=== PATIENT | male | born 1955 | race Caucasian/White ===

== ENCOUNTER 2022-10-17 20:06 | Observation (INO) ==
[2022-10-17] MEDS ORDERED: KETOROLAC TROMETHAMINE 15 MG/ML VIAL IV STA (20:23)
[2022-10-17] MEDS ORDERED: SODIUM CHLORIDE 0.9% 1000ML 1,000 ML IV ONE (20:23)
[2022-10-17] MEDS ORDERED: ONDANSETRON INJ 2 MG/ML 2 ML VIAL IV STA (20:23)
[2022-10-17 20:45] LABS: Hemoglobin 15.1 g/dl (14.0-18.0); Mean Corpuscular Hemoglobin 31.9 pg (25.0-34.0); Mean Corpuscular Volume 88.8 fL (80.0-100.0); Mean Platelet Volume 9.5 fL (9.4-12.4); Platelet Count 257 K/uL (130-400); RDW Coefficient of Variation 11.9 % (11.5-14.5); RDW Standard Deviation 38.9 fL (36.4-46.3); Red Blood Count 4.73 M/uL (4.70-6.10); White Blood Count 12.95 K/ul (4.8-10.8)
[2022-10-17 21:04] LABS: Albumin Level 4.1 gm/dl (3.4-5.0); BUN Creatinine Ratio 18.2 (10-20); Bilirubin Direct 0.1 mg/dl (0-0.2); Bilirubin,Total 1.4 mg/dl (0.2-1.0); Calcium 9.7 mg/dl (8.5-10.1); Creatinine Clr Calc Pharmacy 66.3 ml/min; Est GFR (African American) 81.8 ml/min; Est GFR (Non-African American) 70.6 ml/min; Potassium 3.6 mmol/L (3.5-5.1); Total Protein 7.1 gm/dl (6.0-8.3)
[2022-10-17 21:08] LABS: Troponin I High Sensitivity 13.4 pg/ml (0-20)
[2022-10-17 21:10] LABS: Basophils # (auto) 0.03 K/uL (0-0.2); Basophils % (auto) 0.2 %; Eosinophils # (auto) 0.01 K/uL (0-0.50); Eosinophils % (auto) 0.1 %; Immature Granulocytes # (auto) 0.08 K/uL (0.01-0.20); Immature Granulocytes % (auto) 0.6 %; Lymphocytes # (auto) 0.47 K/uL (1.2-3.4); Lymphocytes % (auto) 3.6 %; Monocytes # (auto) 0.19 K/uL (0.11-0.59); Monocytes % (auto) 1.5 %; Neutrophils # (auto) 12.17 K/uL (1.40-6.50); Toxic Vacuolation 1+
--- NOTE | 2022-10-17 21:11 | Emergency Department Note ---
History of Present Illness General Chief Complaint: Dizziness Stated Complaint: DIZZINESS, DRY HEAVING, ABD DISTENSION Time Seen by Provider: 10/17/22 20:12 History of Present Illness Provider Complaint: abdominal pain Onset (ago): 1 day(s) Pain Consistency: constant Location: epigastric Radiation: none Severity: moderate Quality: + stabbing, + aching, + sharp and + dull Relieved By: + vomiting Exacerbated By: + nothing Context: no foreign travel, no possible food poisoning, no sick contacts, no recent antibiotic use, no recent surgery/procedure or no recent injury Associated Symptoms: + nausea, + vomiting and + chills; no diarrhea, no fever, no constipation, no dysuria, no hematemesis, no hematochezia, no melena, no hematuria, no headache and no back pain Home Medications Medication Instructions Recorded Confirmed Type lisinopril 10 mg tablet 10 mg PO QAM #90 tabs 08/11/22 10/17/22 Rx omeprazole 40 mg capsule,delayed 40 mg PO DAILY PRN gastric reflux 08/11/22 10/17/22 Rx release #90 caps venlafaxine 150 mg 150 mg PO QAM #90 caps 08/11/22 10/17/22 Rx capsule,extended release 24 hr (Effexor XR) Allergies Allergy/AdvReac Type Severity Reaction Status Date / Time No Known Drug Allergies Allergy Unknown Verified 10/17/22 21:34 Past Med/Surg History Medical History Depression Hypertension Hypertriglyceridemia Impaired glucose regulation Insomnia 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 Surgical History History of colonoscopy History of esophagogastroduodenoscopy (EGD) History of left shoulder replacement History of lumbar laminectomy History of repair of right rotator cuff History of tooth extraction Hx of LASIK Hx of vasectomy Status post repair of hydrocele Family History Mother Dementia Hyperlipemia Father , age 75 Cerebral artery occlusion with cerebral infarction Abdominal aortic aneurysm Peripheral vascular disease Unknown Hypertension Brother Skin cancer Uncle Colorectal cancer Grandfather Lung cancer Other No family history of adverse response to anesthesia Denies family history of Ovarian cancer Prostate cancer Myocardial infarction Breast cancer Social History Smoking Status: Unknown if ever smoked Second Hand Exposure: No; Hx Alcohol Use: Yes Alcohol type: beer Alcohol Intake Frequency: Monthly or Less Hx Substance Use: No Preferred Language: Icelandic Communication Ability: Effective Visual Impairment: Limited Hearing Ability: Hard of Hearing Assistant [employer] Required: No Beliefs That Will Affect Care: None marital status: Current Living Situation: Spouse current occupational status: retired How many Children do You have: 0 Feels Safe at Home: Yes Childhood Exposure to Second-Hand Smoke: Yes caffeine: Yes Dental Care, Regularly: Yes Physical Activity Frequency: Does not Exercise Seatbelt Use: always Sunscreen Use: Yes Assistive Devices: None Physical Exam Vital Signs: Vital Signs - 24 hr 10/17/22 20:11 10/17/22 20:34 10/17/22 22:02 Temperature 37.3 C Temperature Source Oral Pulse Rate 85 80 Pulse Rate [Right Radial] 75 Pulse Rhythm Regular Pulse Rhythm [Righ t Radial] Regular Pulse Strength Normal Pulse Strength [Ri ght Radial] Normal Respiratory Rate 14 13 Respiratory Effort / Characteristics Non-Labored Sponta neous Non-Labored Sponta neous Respiratory Depth Normal Normal Respiratory Patter n Regular Regular Blood Pressure 132/69 Blood Pressure [Ri ght Arm] 106/68 Blood Pressure Devorah n 90 Blood Pressure Devorah n [Right Arm] 80 Pulse Oximetry 93 98 Oxygen Delivery Me thod Room Air Room Air Sepsis Recent Feve r Within 48 Hours No Sepsis New/Unexpla ined Change in Men jaclyn Status No Sepsis Action Take n by Nursing No Action Required Physical Exam: Physical Exam HENT: Exam performed. - Head: Normocephalic and atraumatic. - Mouth/Throat: The oropharynx is clear and moist. No trismus in the jaw. No dental abscesses or uvula swelling. No oropharyngeal exudate or tonsillar abscesses. EYES: Conjunctivae and EOM are normal. Pupils are equal, round, and reactive to light. Right eye exhibits no discharge. Left eye exhibits no discharge. No scleral icterus. NECK: Normal range of motion. Neck supple. No JVD present. CV: Normal rate, regular rhythm, normal heart sounds and intact distal pulses. There is no peripheral edema. Palpable radial pulses bue. PULM/CHEST: Effort normal and breath sounds normal. No respiratory distress. No stridor. He has no wheezes. He has no rales. ABD: The abdomen is soft. Bowel sounds are normal. He has no distension. No mass is present. There is no tenderness. There is no rebound, no guarding, no Holman's sign and no tenderness at McBurney's point. Rovsig negative. MUSC/SKEL: Normal range of motion. There is no peripheral edema, tenderness or deformity. NEURO: He is alert and oriented to person, place, and time. He has normal strength. No cranial nerve deficit or sensory deficit. Coordination and gait normal. GCS eye subscore is 4. GCS verbal subscore is 5. GCS motor subscore is 6. Cerebellar tests wnl. SKIN: Skin is warm and dry. He is not diaphoretic. PSYCH: He has a normal mood and affect. Behavior is normal. Judgment and thought content normal. Course Course 2012: The patient was evaluated in room B12. A complete history and physical exam was performed Administered Medications Discontinued Medications Sodium Chloride (Nss 1000ml) 1,000 mls @ 999 mls/hr IV .Q1H1M ONE Stop: 10/17/22 21:23 Last Infusion: 10/17/22 21:38 Dose: 0 mls/hr Documented By: Admin: 10/17/22 20:35 Dose: 999 mls/hr Documented By: SULEIMAN Cefoxitin Sodium (Mefoxin) 2,000 mg in 60 mls @ 100 mls/hr IV NOW STA Stop: 10/17/22 22:53 Last Admin: 10/17/22 22:34 Dose: 100 mls/hr Documented By: SULEIMAN Ketorolac Tromethamine (Ketorolac Tromethamine 15 Mg/Ml Vial) 15 mg IV NOW STA Stop: 10/17/22 20:24 Last Admin: 10/17/22 20:36 Dose: 15 mg Documented By: SULEIMAN Ondansetron HCl (Ondansetron Inj 2 Mg/Ml 2 Ml Vial) 4 mg IV NOW STA Stop: 10/17/22 20:24 Last Admin: 10/17/22 20:35 Dose: 4 mg Documented By: SULEIMAN Medical Decision Making Laboratory Data Attestation: I reviewed the patient's lab results. 10/17/22 20:15 10/17/22 20:15 Lab Results 10/17/22 10/17/22 10/17/22 Range/Units 20:15 20:15 20:15 WBC 12.95 H (4.8-10.8) K/ul RBC 4.73 (4.70-6.10) M/uL Hgb 15.1 (14.0-18.0) g/dl Hct 42.0 (42.0-52.0) % MCV 88.8 (80.0-100.0) fL MCH 31.9 (25.0-34.0) pg MCHC 36.0 (32.0-36.0) g/dL RDW Std Deviation 38.9 (36.4-46.3) fL RDW Coeff of Vivian 11.9 (11.5-14.5) % Plt Count 257 (130-400) K/uL MPV 9.5 (9.4-12.4) fL Immature Gran % (Auto) 0.6 % Neut % (Auto) 94.0 % Lymph % (Auto) 3.6 % [place] % (Auto) 1.5 % Eos % (Auto) 0.1 % Baso % (Auto) 0.2 % Neut # (Auto) 12.17 H (1.40-6.50) K/uL Lymph # (Auto) 0.47 L (1.2-3.4) K/uL [place] # (Auto) 0.19 (0.11-0.59) K/uL Eos # (Auto) 0.01 (0-0.50) K/uL Baso # (Auto) 0.03 (0-0.2) K/uL Immature Gran # (Auto) 0.08 (0.01-0.20) K/uL Toxic Vacuolation 1+ PT 10.9 (9.0-12.0) Seconds INR 1.0 (0.9-1.1) APTT 21.6 (21.0-31.0) Seconds PTT Ratio 0.8 Sodium 136 (136-145) mmol/L Potassium 3.6 (3.5-5.1) mmol/L Chloride 103 (98-107) mmol/L Carbon Dioxide 21 (21-32) mmol/L Anion Gap 12 H (3-11) BUN 20 (6-23) mg/dl Creatinine 1.10 (0.6-1.4) mg/dl Est Cr Clr Drug Dosing 66.3 ml/min Est GFR ( Amer) 81.8 ml/min Est GFR (Non-Af Amer) 70.6 ml/min BUN/Creatinine Ratio 18.2 (10-20) Glucose 179 H (70-99(Fasting)) mg/dl Calcium 9.7 (8.5-10.1) mg/dl Total Bilirubin 1.4 H (0.2-1.0) mg/dl Direct Bilirubin 0.1 (0-0.2) mg/dl AST 17 (13-39) U/L ALT 24 (7-52) U/L Alkaline Phosphatase 72 (34-104) U/L Troponin I High Sens 13.4 (0-20) pg/ml Total Protein 7.1 (6.0-8.3) gm/dl Albumin 4.1 (3.4-5.0) gm/dl Lipase 12 (11-82) U/L SARS-CoV-2, RNA, NAAT (NEGATIVE) 10/17/22 Range/Units 22:15 WBC (4.8-10.8) K/ul RBC (4.70-6.10) M/uL Hgb (14.0-18.0) g/dl Hct (42.0-52.0) % MCV (80.0-100.0) fL MCH (25.0-34.0) pg MCHC (32.0-36.0) g/dL RDW Std Deviation (36.4-46.3) fL RDW Coeff of Vivian (11.5-14.5) % Plt Count (130-400) K/uL MPV (9.4-12.4) fL Immature Gran % (Auto) % Neut % (Auto) % Lymph % (Auto) % [place] % (Auto) % Eos % (Auto) % Baso % (Auto) % Neut # (Auto) (1.40-6.50) K/uL Lymph # (Auto) (1.2-3.4) K/uL [place] # (Auto) (0.11-0.59) K/uL Eos # (Auto) (0-0.50) K/uL Baso # (Auto) (0-0.2) K/uL Immature Gran # (Auto) (0.01-0.20) K/uL Toxic Vacuolation PT (9.0-12.0) Seconds INR (0.9-1.1) APTT (21.0-31.0) Seconds PTT Ratio Sodium (136-145) mmol/L Potassium (3.5-5.1) mmol/L Chloride (98-107) mmol/L Carbon Dioxide (21-32) mmol/L Anion Gap (3-11) BUN (6-23) mg/dl Creatinine (0.6-1.4) mg/dl Est Cr Clr Drug Dosing ml/min Est GFR ( Amer) ml/min Est GFR (Non-Af Amer) ml/min BUN/Creatinine Ratio (10-20) Glucose (70-99(Fasting)) mg/dl Calcium (8.5-10.1) mg/dl Total Bilirubin (0.2-1.0) mg/dl Direct Bilirubin (0-0.2) mg/dl AST (13-39) U/L ALT (7-52) U/L Alkaline Phosphatase (34-104) U/L Troponin I High Sens (0-20) pg/ml Total Protein (6.0-8.3) gm/dl Albumin (3.4-5.0) gm/dl Lipase (11-82) U/L SARS-CoV-2, RNA, NAAT NEGATIVE (NEGATIVE) Imaging Data Attestation: I personally reviewed and interpreted this imaging study as follows: My Impression: Acute abdominal series: Chest x-ray negative. Airway clear. No pneumothorax. No consolidation. No cardiomegaly or cephalization.. No free air under the diaphragm. No fractures of the skeletal structures. No air-fluid levels nonspecific bowel gas pattern. Radiologist's Impression: Gallbladder Ultrasound 10/17/22 20:23 ULTRASOUND RIGHT UPPER QUADRANT ABDOMEN CLINICAL HISTORY: Right upper quadrant and epigastric abdominal pain. COMPARISON STUDY: Abdominal radiograph dated 10/17/2022 TECHNIQUE: Real-time, grayscale, and color flow sonography of the right upper quadrant of the abdomen was performed. Images are reviewed in the transverse and longitudinal planes. FINDINGS: Liver: The liver is normal in size and heterogeneous and echotexture. There is no intrahepatic biliary ductal dilatation. The main portal vein is patent. Gallbladder: A 4 mm gallbladder polyp is incidentally noted. The gallbladder is mildly distended and there are shadowing gallstones and sludge. There is no gallbladder wall thickening or pericholecystic fluid. A sonographic Holman's sign could not be assessed as the patient received analgesia. The common bile duct measures up to 0.4 cm in diameter. Pancreas: Visualized portions of the pancreatic head and body are normal in appearance. The splenic vein is patent. Right kidney: Survey images of the right kidney demonstrate normal size and e chotexture. There is no hydronephrosis. Ascites: None. IMPRESSION: 1. Gallstones and biliary sludge within a mildly distended gallbladder. There is no wall thickening or definitive sonographic evidence of acute cholecystitis. Correlate with clinical and laboratory findings. If there is strong clinical concern for acute cholecystitis a hepatobiliary scan could be considered. 2. There is no intra or extrahepatic biliary ductal dilatation. ACT 112: Negative or not required by law. Electronically signed by: Lang Bowden M.D. 10/17/2022 9:29 PM Chest/Abdomen X-ray 10/17/22 20:24 PA CHEST WITH ABDOMINAL SERIES CLINICAL HISTORY: Right upper quadrant abdominal pain. Nausea and vomiting. Diarrhea FINDINGS: A PA chest radiograph is compared to study dated 12/30/2020. The cardiomediastinal silhouette is top normal for projection. Airspace opacities are seen in the left lung base. There is mild right basilar atelectasis. No pleural effusion or pneumothorax is seen. The skeletal structures appear osteopenic. The bony thorax is grossly intact. A left shoulder arthroplasty is in place. Supine and erect abdominal radiographs are obtained. No prior studies are available for comparison at the time of dictation. There is a nonobstructed a bdominal bowel gas pattern. Moderate fecal retention is noted throughout the colon. No evidence of intraperitoneal free air is seen. There are no abnormal abdominal calcifications. The lumbosacral spine and bony pelvis appear intact. There is lumbosacral spondylosis. IMPRESSION: 1. Left basilar opacities could represent atelectasis versus a mild pneumonitis. Clinical correlation will be required and radiographic follow-up to resolution is recommended. 2. Nonobstructed abdominal bowel gas pattern noting moderate colonic fecal retention. ACT 112: Negative or not required by law. Electronically signed by: Lang Bowden M.D. 10/17/2022 9:33 PM ECG Data Attestation: I personally reviewed and interpreted this ECG as follows: Indication: abdominal pain Rate (beats per minute): 82 Rhythm: normal sinus Findings: no ST depression, no ST elevation or no prolonged QT MDM Narrative Cardiac monitoring: An order was placed for continuous cardiac monitoring. The monitor shows a rate of 70 with sinus rhythm interpreted by me Vital signs stable. Labs show mild leukocytosis of 12.95. Bilirubin is mildly elevated at 1.4. Ultrasound shows gallstones but no cholecystitis. I discussed the findings with the patient and family members at bedside and give the patient for outpatient surgical evaluation. Patient states he does not want the pain to come back and is requesting to have the gallbladder removed GABINO. General surgery was consulted and agreed to admit the patient to their service for possible cholecystectomy. Impression & Plan Biliary colic, Gallstone Discharge Plan Visit Data Chief Complaint: Dizziness Stated Complaint: DIZZINESS, DRY HEAVING, ABD DISTENSION ED Provider: Rd Emerson Discharge Problem: Biliary colic, Gallstone Patient Disposition: Being Evaluated by Surgeon Forms Stand Alone Forms: My [facility] Prescriptions Prescriptions: No Action lisinopril 10 mg tablet 10 mg PO QAM Qty: 90 3RF omeprazole 40 mg capsule,delayed release(DR/EC) 40 mg PO DAILY PRN (Reason: gastric reflux) Qty: 90 3RF venlafaxine [Effexor XR] 150 mg capsule,extended release 24hr 150 mg PO QAM Qty: 90 3RF Referrals Referrals: Christo Landrum MD [Primary Care Provider] -
[2022-10-17 21:21] LABS: Partial Thromboplastin Ratio 0.8; Partial Thromboplastin Time 21.6 Seconds (21.0-31.0); Prothrombin Time 10.9 Seconds (9.0-12.0)
--- NOTE | 2022-10-17 21:31 | Ultrasound Report ---
ULTRASOUND RIGHT UPPER QUADRANT ABDOMEN CLINICAL HISTORY: Right upper quadrant and epigastric abdominal pain. COMPARISON STUDY: Abdominal radiograph dated 10/17/2022 TECHNIQUE: Real-time, grayscale, and color flow sonography of the right upper quadrant of the abdomen was performed. Images are reviewed in the transverse and longitudinal planes. FINDINGS: Liver: The liver is normal in size and heterogeneous and echotexture. There is no intrahepatic biliar y ductal dilatation. The main portal vein is patent. Gallbladder: A 4 mm gallbladder polyp is incidentally noted. The gallbladder is mildly distended and there are shadowing gallstones and sludge. There is no gallbladder wall thickening or pericholecystic fluid. A sonographic Holman's sign could not be assessed as the patient received analgesia. The comm on bile duct measures up to 0.4 cm in diameter. Pancreas: Visualized portions of the pancreatic head and body are normal in appearance. The splenic v ein is patent. Right kidney: Survey images of the right kidney demonstrate normal size and echotexture. There is no hydronephrosis. Ascites: None. IMPRESSION: 1. Gallstones and biliary sludge within a mildly distended gallbladder. There is no wall thickening o r definitive sonographic evidence of acute cholecystitis. Correlate with clinical and laboratory find ings. If there is strong clinical concern for acute cholecystitis a hepatobiliary scan could be consi dered. 2. There is no intra or extrahepatic biliary ductal dilatation. ACT 112: Negative or not required by law. Electronically signed by: Lang Bowden M.D. 10/17/2022 9:29 PM
--- NOTE | 2022-10-17 21:35 | XRay Report ---
PA CHEST WITH ABDOMINAL SERIES CLINICAL HISTORY: Right upper quadrant abdominal pain. Nausea and vomiting. Diarrhea FINDINGS: A PA chest radiograph is compared to study dated 12/30/2020. The cardiomediastinal silhouette is top n ormal for projection. Airspace opacities are seen in the left lung base. There is mild right basilar atelectasis. No pleural effusion or pneumothorax is seen. The skeletal structures appear osteopenic. The bony thorax is grossly intact. A left shoulder arthroplasty is in place. Supine and erect abdominal radiographs are obtained. No prior studies are available for comparison at the time of dictation. There is a nonobstructed abdominal bowel gas pattern. Moderate fecal retentio n is noted throughout the colon. No evidence of intraperitoneal free air is seen. There are no abnorm al abdominal calcifications. The lumbosacral spine and bony pelvis appear intact. There is lumbosacra l spondylosis. IMPRESSION: 1. Left basilar opacities could represent atelectasis versus a mild pneumonitis. Clinical correlation will be required and radiographic follow-up to resolution is recommended. 2. Nonobstructed abdominal bowel gas pattern noting moderate colonic fecal retention. ACT 112: Negative or not required by law. Electronically signed by: Lang Bowden M.D. 10/17/2022 9:33 PM
--- NOTE | 2022-10-17 22:17 | Surgery Consultation ---
I reviewed this case with the surgical PA and reviewed his ED and admission work up including images. I agree with the plan. Date of Consultation October 17, 2022 Assessment & Plan (1) Biliary colic: I suspect the patient is suffering from biliary colic due to the stones and sludge noted in his gallbladder. The patient does not have definite evidence of acute cholecystitis and I therefore offered the patient discharge from the emergency department with close outpatient follow-up versus admission and potential cholecystectomy. Due to the severity of the pain he experienced prior to arrival to the emergency department the patient is reluctant to go home and wishes to consider having cholecystectomy this admission so we will admit him to the hospital. We will proceed as follows: Analgesia will be provided Antiemetics will be provided We will provide hydration with IV fluids We will initiate antibiotics in the form of cefoxitin I think would be reasonable to allow the patient clear liquids until midnight tonight at which time he will be made n.p.o. Serial labs will be followed A COVID test has been ordered and is pending The patient is tentatively scheduled for laparoscopic possible open cholecystectomy with Dr. Mercedes on 10/18/2022 Additional recommendations be forthcoming based on patient's serial labs, operative findings, and postoperative recovery We will use SCDs for DVT prevention, no chemical means due to planned surgery The patient be a level 1 full code History of Present Illness Reason for Consultation: Biliary colic History of Present Illness This is a 66-year-old male who presented to [facility] emergency department secondary to upper abdominal pain. Patient says he was in his usual state of health until the past 24 hours he developed some upper abdominal pain in the epigastric and to a greater extent the right upper quadrant. He does report that he would occasionally get some postprandial pain over the past several months that would be relieved with belching but his pain that caused him to present to the emergency department this evening was markedly worse and almost unbearable causing him to come seek medical attention. He did not report any palliative or provocative factors. He denies any prior abdominal surgeries. He notes that he did not take his temperature but he did get chills. In addition the patient had nausea and vomiting. Upon presentation to the emergency department he had labs and imaging which I independently reviewed. A CBC revealed white blood cell count was 12.9. Hemoglobin, hematocrit, and platelet count were within the normal range. Coagulation studies were noted to be normal. Chemistry profile showed sodium, potassium, BUN, and creatinine were within normal range. He was noted to have an elevation of his total bilirubin at 1.4 but his direct bilirubin was within the normal range. Transaminases, alkaline phosphatase, and lipase were none levated. A troponin was checked and was nonelevated. He did have an EKG that did not show evidence indicative of acute ischemia.The patient did have a chest x-ray that showed he had a left basilar opacity that was felt to represent either mild pneumonitis or atelectasis. He was noted to have a nonobstructive bowel gas pattern on an abdominal x-ray. A gallbladder ultrasound was performed that showed gallstones with biliary sludge and a mildly distended gallbladder. No gallbladder wall thickening or definite evidence of cholecystitis was noted. I did question the patient on his activities of daily living and he notes that he leads an active lifestyle he is able to negotiate steps and inclines without any chest pain or shortness of breath. Since arrival to the emergency department the patient has received Zofran, 15 mg of Toradol and 1 L of normal saline solution. His symptoms had markedly improved by the time of my arrival at the bedside. At the time of my interview the patient was resting comfortably in bed he was in no distress Allergies Allergy/AdvReac Type Severity Reaction Status Date / Time No Known Drug Allergies Allergy Unknown Verified 10/17/22 21:34 Home Medications Medication Instructions Recorded Confirmed Type lisinopril 10 mg tablet 10 mg PO QAM #90 tabs 08/11/22 10/17/22 Rx omeprazole 40 mg capsule,delayed 40 mg PO DAILY PRN gastric reflux 08/11/22 10/17/22 Rx release #90 caps venlafaxine 150 mg 150 mg PO QAM #90 caps 08/11/22 10/17/22 Rx capsule,extended release 24 hr (Effexor XR) Patient History Medical History Depression Hypertension Hypertriglyceridemia Impaired glucose regulation Insomnia 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 Surgical History History of colonoscopy History of esophagogastroduodenoscopy (EGD) History of left shoulder replacement History of lumbar laminectomy History of repair of right rotator cuff History of tooth extraction Hx of LASIK Hx of vasectomy Status post repair of hydrocele Family History Mother Dementia Hyperlipemia Father , age 75 Cerebral artery occlusion with cerebral infarction Abdominal aortic aneurysm Peripheral vascular disease Unknown Hypertension Brother Skin cancer Uncle Colorectal cancer Grandfather Lung cancer Other No family history of adverse response to anesthesia Denies family history of Ovarian cancer Prostate cancer Myocardial infarction Breast cancer Social History Smoking Status: Never smoker Second Hand Exposure: No; Hx Alcohol Use: No Hx Substance Use: No Preferred Language: Thai Communication Ability: Effective Visual Impairment: Limited Hearing Ability: Hard of Hearing Instructional Technology Specialist Required: No Beliefs That Will Affect Care: None marital status: Current Living Situation: Spouse Current Living Situation Comment: lives in 2 story home with current occupational status: retired How many Children do You have: 0 Other Information That Helps Us Care for You: No Feels Safe at Home: Yes Safety Concerns: Feels Safe At This Time Childhood Exposure to Second-Hand Smoke: Yes caffeine: Yes Dental Care, Regularly: Yes Physical Activity Frequency: Does not Exercise Seatbelt Use: always Sunscreen Use: Yes Assistive Devices: None Review of Systems Constitutional: + chills; no fever Eyes: no eye pain Ear, Nose, Mouth, Throat: no ear pain Respiratory: no cough and no dyspnea Cardiovascular: no chest pain Gastrointestinal: as per Subjective / HPI Genitourinary: no dysuria Musculoskeletal: no back pain Integumentary: no rash Neurologic: no localized weakness Physical Exam Constitutional: WD/WN, vitals as above Eyes: + anicteric sclerae; no conjunctival abnormality ENMT: Ears: no hearing impairment and no external ear abnormality Mouth: no oropharynx abnormality Neck: trachea midline Respiratory: normal respiratory effort; no respiratory distress and no labored breathing No rales, rhonchi, or wheezing. Cardiovascular: Rate/Rhythm: regular rate and regular rhythm Vessels: dorsalis pedis pulses present Gastrointestinal (Abdomen): Abdomen is rotund with mild distention. There is no rigidity. There is no rebound tenderness or guarding. At the time of my exam there is no pain with palpation. Holman sign was negative.The patient is noted to have an apparent diastases recti in his abdomen superior to the umbilicus. (Bulging is noted when the patient strains/Valsalvas.) This area is nonpainful to palpation Musculoskeletal: No calf tenderness Skin: no rashes Neurologic: Patient is able to move all 4 extremities noted focal deficits. Patient did report a pre-existing history of Collazo's palsy and he was noted to have some residual paralysis of his left facial nerve. Psychiatric: A+Ox3, euthymic affect Results & Data ([facility]) Vital Signs (Past 12 Hours) Vital Signs Temp Pulse Pulse Resp BP BP Pulse Ox 10/17/22 22:02 75 13 106/68 98 10/17/22 20:34 80 10/17/22 20:11 37.3 C 85 14 132/69 93 O2 Del Method 10/17/22 22:02 Room Air 10/17/22 20:34 10/17/22 20:11 Room Air PG Care Time/CCT Total # of Minutes Spent Total Time Spent with Patient: Total time spent is greater than 50% in coordination of care (as documented) at patient's floor/unit and/or counseling patient: Coding Level of Care Code 81989 IN/OBS CONSULT LVL 5,80M Diagnoses Biliary colic K80.50
[2022-10-17] MEDS ORDERED: ONDANSETRON INJ 2 MG/ML 2 ML VIAL IV PRN (22:18)
[2022-10-17] MEDS ORDERED: MoRPHine SULFATE 4 MG/ML 1 ML CARP\\VIAL IV PRN (22:18)
[2022-10-17] MEDS ORDERED: cefOXitin 2,000 MG/60 ML BAG IV STA (22:18)
[2022-10-17] MEDS ORDERED: PANTOprazole 40 MG TAB PO PRN (23:41)
[2022-10-17] MEDS: LACTATED RINGER'S 1,000 ML IV SCH (23:54)
[2022-10-18] MEDS: cefOXitin 2,000 MG in DEXTROSE 5% 50 ML IV SCH ×2 (05:19→12:40)
[2022-10-18] MEDS: ACETAMINOPHEN 1,000 MG/100 ML VIAL IV PRN (05:30)
[2022-10-18 05:57] LABS: Appearance Urine Clear (Clear); Bacteria Urine Automated Negative (Negative); Bilirubin Urine Negative (Negative); Blood Urine Negative (Negative); Color Urine Orange; Glucose Urine UA Negative (Negative); Ketones Urine Trace (Negative); Leukocyte Esterase Urine Negative (Negative); Nitrite Urine Negative (Negative); Protein Urine Trace (Negative); RBC Urine Automated 0-4 /hpf (0-4); Specific Gravity Urine 1.029 (1.000-1.030); Urobilinogen Urine Negative (Negative); pH Urine 5.5 (4.5-7.5)
[2022-10-18 07:51] LABS: Basophils # (auto) 0.03 K/uL (0-0.2); Basophils % (auto) 0.2 %; Eosinophils # (auto) 0.03 K/uL (0-0.50); Eosinophils % (auto) 0.2 %; Hematocrit (blood only) 37.7 % (42.0-52.0); Hemoglobin 13.2 g/dl (14.0-18.0); Immature Granulocytes # (auto) 0.05 K/uL (0.01-0.20); Immature Granulocytes % (auto) 0.4 %; Lymphocytes # (auto) 0.53 K/uL (1.2-3.4); Lymphocytes % (auto) 4.1 %; Mean Corpuscular Hemoglobin 31.9 pg (25.0-34.0); Mean Corpuscular Volume 91.1 fL (80.0-100.0); Mean Platelet Volume 9.6 fL (9.4-12.4); Monocytes % (auto) 6.9 %; Neutrophils # (auto) 11.41 K/uL (1.40-6.50); Neutrophils % (auto) 88.2 %; Platelet Count 222 K/uL (130-400); RDW Coefficient of Variation 12.3 % (11.5-14.5); RDW Standard Deviation 40.6 fL (36.4-46.3); Red Blood Count 4.14 M/uL (4.70-6.10); White Blood Count 12.95 K/ul (4.8-10.8)
[2022-10-18] MEDS: LACTATED RINGER'S 1,000 ML IV SCH ×2 (07:56→17:04)
[2022-10-18] MEDS: VENLAFAXINE HCL XR 150 MG CAPXR PO SCH (07:56)
[2022-10-18 08:15] LABS: Albumin Globulin Ratio 1.5 (0.9-2); Albumin Level 3.6 gm/dl (3.4-5.0); BUN Creatinine Ratio 21.1 (10-20); Bilirubin,Total 1.2 mg/dl (0.2-1.0); Calcium 8.6 mg/dl (8.5-10.1); Creatinine Clr Calc Pharmacy 66.2 ml/min; Est GFR (African American) 82.7 ml/min; Est GFR (Non-African American) 71.4 ml/min; Globulin 2.4 gm/dl (2.5-4.0); Potassium 4.1 mmol/L (3.5-5.1)
[2022-10-18] MEDS ORDERED: fentaNYL citrate PF 100 MCG/2 ML VIAL IV PRN (13:23)
[2022-10-18] MEDS ORDERED: PROMETHAZINE HCL 12.5 MG in SODIUM CHLORIDE 0.9% 50 ML IV PRN (13:23)
[2022-10-18] MEDS ORDERED: ATROPINE SULFATE 0.1 MG/ML 10ML SYR IV PRN (13:23)
[2022-10-18] MEDS ORDERED: ONDANSETRON INJ 2 MG/ML 2 ML VIAL IV PRN (13:23)
[2022-10-18] MEDS ORDERED: KETOROLAC 30 MG/ML VIAL IV PRN (13:23)
--- NOTE | 2022-10-18 13:23 | Anesthesiology Consultation ---
Date of Service October 18, 2022 Assessment & Plan (1) Encounter for pre-operative examination: Chart Review Chart Review: Acceptable Risk for Surgery History Surgery Operation Date: 10/18/22 07:00 Proposed Procedures p Laparoscopic Cholecystectomy - Shabana Mercedes DO Height/Weight Height: 5 ft 5 in Weight: 78.6 kg Allergies Allergy/AdvReac Type Severity Reaction Status Date / Time No Known Drug Allergies Allergy Unknown Verified 10/17/22 21:34 Medications Home Medications Medication Instructions Recorded Confirmed Last Taken lisinopril 10 mg tablet 10 mg PO QAM #90 tabs 08/11/22 10/17/22 10/17/22 omeprazole 40 mg capsule,delayed 40 mg PO DAILY PRN gastric reflux 08/11/22 10/17/22 Unknown release #90 caps venlafaxine 150 mg 150 mg PO QAM #90 caps 08/11/22 10/17/22 10/17/22 capsule,extended release 24 hr (Effexor XR) Active Medications Generic Name Dose Route Start Last Admin Trade Name Freq PRN Reason Stop Dose Admin Acetaminophen 1,000 mg in 100 mls @ 400 mls/hr 10/17/22 22:18 10/18/22 05:45 Ofirmev IV 10/20/22 22:17 Infused Q8H PRN Infusion pain Lactated Ringer's 1,000 mls @ 100 mls/hr 10/17/22 22:30 10/18/22 07:56 Lr IV 11/16/22 22:29 100 mls/hr .Q10H SHADE Administration Cefoxitin Sodium 2,000 mg/ 60 mls @ 100 mls/hr 10/18/22 06:00 10/18/22 12:40 Dextrose IV 10/28/22 05:59 100 mls/hr Q6H SHADE Administration Ondansetron HCl 4 mg 10/17/22 22:18 10/18/22 05:30 Ondansetron Inj 2 Mg/Ml 2 Ml Vial IV 11/16/22 22:17 4 mg Q4H PRN Administration Nausea Venlafaxine HCl 150 mg 10/18/22 09:00 10/18/22 07:56 Venlafaxine Hcl Xr 150 Mg Capxr PO 11/17/22 08:59 150 mg QAM SHADE Administration Past Medical History Medical History Depression Hypertension Hypertriglyceridemia Impaired glucose regulation Insomnia 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 Past Family History Family History Mother Dementia Hyperlipemia Father , age 75 Cerebral artery occlusion with cerebral infarction Abdominal aortic aneurysm Peripheral vascular disease Unknown Hypertension Brother Skin cancer Uncle Colorectal cancer Grandfather Lung cancer Other No family history of adverse response to anesthesia Denies family history of Ovarian cancer Prostate cancer Myocardial infarction Breast cancer Past Surgical History Surgical History History of colonoscopy History of esophagogastroduodenoscopy (EGD) History of left shoulder replacement History of lumbar laminectomy History of repair of right rotator cuff History of tooth extraction Hx of LASIK Hx of vasectomy Status post repair of hydrocele Social History Smoking Status: Never smoker Hx Alcohol Use: No Alcohol type: beer alcohol intake frequency: holidays/special occasions only Hx Substance Use: No substance use type: does not use Physical Exam Vital Signs Last Vital Signs Temp 36.8 C 10/18/22 04:05 Pulse 72 10/18/22 04:05 Resp 18 10/18/22 04:05 BP 118/68 10/18/22 04:05 Pulse Ox 97 10/18/22 04:05 O2 Del Method Room Air 10/18/22 08:00 Testing Laboratory Results 10/18/22 07:25 10/18/22 07:25 PT 10.9 Seconds (9.0-12.0) 10/17/22 20:15 INR 1.0 (0.9-1.1) 10/17/22 20:15 APTT 21.6 Seconds (21.0-31.0) 10/17/22 20:15 Urine Color [place] 10/18/22 05:20 Urine Appearance Clear (Clear) 10/18/22 05:20 Urine pH 5.5 (4.5-7.5) 10/18/22 05:20 Ur Specific [place] 1.029 (1.000-1.030) 10/18/22 05:20 Urine Protein Trace (Negative) H 10/18/22 05:20 Urine Glucose (UA) Negative (Negative) 10/18/22 05:20 Urine Ketones Trace (Negative) H 10/18/22 05:20 Urine Nitrite Negative (Negative) 10/18/22 05:20 Ur Leukocyte Esterase Negative (Negative) 10/18/22 05:20 Urine WBC (Auto) 1-5 /hpf (0-5) 10/18/22 05:20 Urine RBC (Auto) 0-4 /hpf (0-4) 10/18/22 05:20 U Hyaline Cast (Auto) 1-5 /lpf (0-5) 10/18/22 05:20 U Epithel Cells (Auto) 5-10 /lpf (0-5) H 10/18/22 05:20 Urine Bacteria (Auto) Negative (Negative) 10/18/22 05:20 Electrocardiogram Date: 10/17/22 Findings: + NSR @ (82) and + NSST changes
--- NOTE | 2022-10-18 13:54 | Surgery Progress Note ---
Date of Service October 18, 2022 Assessment & Plan (1) Acute cholecystitis: Plan: early Continue antibiotics Plan for laparoscopic cholecystectomy today The details of the procedure have been explained to him including the risks and benefits. He expressed understanding of this explanation and all of his questions were answered. Consent was obtained. Admission and Anticipated Discharge Date Admission Date: October 17, 2022 Subjective Patient was seen this am. He has continued RUQ discomfort although he says it is less than it was when he arrived to the ED. He denies N/V, fevers or chills. Physical Exam Constitutional: cooperative and comfortable; no acute distress and not ill appearing Respiratory: no respiratory distress, no labored breathing, no cough and not tachypneic Auscultation: no wheezes Cardiovascular: Rate/Rhythm: regular rate; not bradycardic and not tachycardic Gastrointestinal (Abdomen): Inspection/Auscultation: abdomen not distended and no abdominal wall ecchymosis Percussion/Palpation: + abdomen tender (minimal TTP RUQ) and abdomen soft; no guarding and abdomen not rigid Results & Data Vital Signs (Past 12 Hours) Vital Signs Temp Pulse Resp BP Pulse Ox O2 Del Method 10/18/22 08:00 Room Air 10/18/22 04:05 36.8 C 72 18 118/68 97 Room Air Laboratory Results WBC still 12.95 this am PG Care Time/CCT Total # of Minutes Spent Total Time Spent with Patient: Total time spent is greater than 50% in coordination of care (as documented) at patient's floor/unit and/or counseling patient: Coding Level of Care Code 15348 SUB INP/OBS CARE 1/25MIN Diagnoses Acute cholecystitis K81.0
[2022-10-18] MEDS ORDERED: ROCURONIUM BROMIDE 10 MG/ML 5 ML VIAL IV ONE ×4 (14:06→14:50)
[2022-10-18] MEDS ORDERED: DEXAMETHASONE SOD INJ 4 MG/ML VIAL ONE (14:06)
[2022-10-18] MEDS ORDERED: fentaNYL citrate PF 100 MCG/2 ML VIAL ONE ×2 (14:06→15:44)
[2022-10-18] MEDS ORDERED: GLYCOPYRROLATE 0.2 MG/ML VIAL ONE (14:06)
[2022-10-18] MEDS ORDERED: PROPOFOL IV EMULSION 10 MG/ML 20 ML VIAL IV ONE (14:06)
[2022-10-18] MEDS ORDERED: ONDANSETRON INJ 2 MG/ML 2 ML VIAL ONE (14:06)
[2022-10-18] MEDS ORDERED: MIDAZOLAM HCL 1 MG/ML 2ML VIAL ONE (14:09)
[2022-10-18] MEDS ORDERED: BUPIVACAINE/EPINEPHRINE 0.5% MPF 1:200,000 30 ML VIAL ONE (14:14)
[2022-10-18] MEDS ORDERED: SUGAMMADEX SODIUM 200 MG/2 ML VIAL IV ONE (14:40)
[2022-10-18] MEDS ORDERED: PHENYLEPHRINE HCL 10 MG/ML VIAL ONE (14:41)
--- NOTE | 2022-10-18 15:41 | Post Operative Brief Note ---
PG Immediate Post Op with CF Date of Surgery October 18, 2022 Pre & Post Diagnosis Operation Date: 10/18/22 07:00 Pre-Op Diagnosis: Acute cholecystitis Post-Op Diagnosis: Acute cholecystitis I identified the patient and participated in the time-out.: Yes Procedure Operation Date: 10/18/22 07:00 Actual Procedures p Laparoscopic Cholecystectomy(Not Applicable) - Shabana Mercedes DO Surgeon Shabana Mercedes DO Outcomes Analyst No physician Estimated Blood Loss 7 Findings Consistent with Post-Op Diagnosis Distended gallbladder with mildly edematous pericholecystic tissues Specimens Specimen Description: A. Gallbladder Complications None
--- NOTE | 2022-10-18 16:29 | Operative Report ---
PG Post Operative Report Pre & Post Diagnosis Operation Date: 10/18/22 07:00 Pre-Op Diagnosis: Acute cholecystitis Post-Op Diagnosis: Acute cholecystitis I identified the patient and participated in the time-out.: Yes Procedure Operation Date: 10/18/22 07:00 Actual Procedures p Laparoscopic Cholecystectomy(Not Applicable) - Shabana Mercedes DO Surgeon Shabana Mercedes DO Core Manager No physician Estimated Blood Loss 7 Findings Consistent with Post-Op Diagnosis Specimens Gallbladder Complications None Description of Procedure The patient was brought back to the operating room and placed on the operating room table in supine position. The patient was connected to cardiac and O2 monitoring. Anesthesia administered general anesthetic and intubated the patient. The abdomen was prepped and draped with the surgical site in view. A timeout was conducted. A small stab incision was made just above the umbilicus and a Veress needle was inserted into the intra-abdominal space. A saline drop test was performed to confirm placement. O2 insufflation was initiated to a goal pressure of 15 mmHg. A 5 mm trocar was inserted. A 5 mm laparoscope was inserted and an 11 mm trocar was inserted at the epigastric region under direct visualization. 2 additional 5 mm trocars were inserted along the subcostal space under direct visualization. A general inspection of the intra-abdominal space was performed and there were no injuries noted to be caused by any of the trocars that were placed. The OR table was positioned in reverse Trendelenburg and left side down. The gallbladder was grasped at the fundus and infundibulum. The gallbladder was distended. There was edematous fatty tissue around the infundibulum. A [place] dissector was used to dissect the cystic duct and cystic artery. These structures were clipped with a 5 mm clip unit tender placing clips proximally and 1 distally on the cystic duct, 2 proximal clips and 1 distal on the cystic artery. The gallbladder was gently cauterized away from the liver bed. The medial area of the gallbladder that was closely associated with the liver was very thin- walled. There was some bile spillage of dark bile. After the gallbladder was removed the right upper quadrant was copiously irrigated with 2 L of saline and suctioned away. The liver bed was checked for hemostasis. A few areas of small oozing were controlled with cautery. This area was irrigated and suctioned multiple times and rechecked for hemostasis. Hemostasis was adequately achieved. The trocars were all pulled back and rechecked for any bleeding at the level of the muscle and none of the sites were bleeding. The OR table was r eturned to the neutral position. CO2 insufflation was discontinued and excess air was evacuated from the abdomen. The instruments and trocars were all removed. The fascia at the epigastric port site was closed with a 0 Vicryl suture. 0.5% Lidocaine with epinephrine was injected at all 4 incision sites infiltrating the skin and subcutaneous tissue. The skin was closed with 4-0 Vicryl suture at all 4 incisions. The abdomen was wiped with a wet lap pad and dried. Dermabond was applied to all 4 incisions. The incisions were dressed with 2 x 2 gauze and Tegaderm. The patient tolerated the procedure well. He was awakened from anesthesia, extubated and transferred to PACU in stable condition. I attest to the content of the Intraoperative Record and any orders documented therein. Any exceptions are noted below.
[2022-10-18] MEDS ORDERED: oxyCODONE HCL IR 5 MG TAB (IMMEDIATE RELEASE) PO PRN ×2 (16:59)
[2022-10-18] MEDS ORDERED: MoRPHine SULFATE 2 MG/ML CARP IV PRN (16:59)
[2022-10-18] MEDS ORDERED: ACETAMINOPHEN 325 MG TAB PO PRN (16:59)
--- NOTE | 2022-10-18 17:06 | Anesthesiology Progress Note ---
Date of Service October 18, 2022 Anesthesia Post Procedure Vital Signs Vital Signs: Temp Pulse Pulse Pulse Pulse Resp BP 10/18/22 17:00 98.4 F 74 18 10/18/22 16:45 73 18 10/18/22 16:35 77 20 10/18/22 16:25 98.6 F 79 17 10/18/22 16:15 80 12 10/18/22 16:05 80 20 10/18/22 15:55 75 22 10/18/22 15:49 98.4 F 83 14 10/18/22 13:49 98.4 F 80 20 10/18/22 08:00 10/18/22 04:05 98.2 F 72 18 10/17/22 23:45 98.2 F 89 18 10/17/22 23:18 74 14 106/52 L 10/17/22 22:02 75 13 10/17/22 20:34 80 10/17/22 20:11 99.1 F 85 14 132/69 BP Pulse Ox O2 Del Method O2 Flow Rate 10/18/22 17:00 139/81 94 Nasal Cannula 2 10/18/22 16:45 139/86 95 Nasal Cannula 2 10/18/22 16:35 138/78 95 Nasal Cannula 2 10/18/22 16:25 137/80 96 Nasal Cannula 2 10/18/22 16:15 133/82 98 Oxymask 8 10/18/22 16:05 144/74 H 97 Oxymask 8 10/18/22 15:55 144/83 H 96 Oxymask 13 10/18/22 15:49 162/77 H 92 Oxymask 13 10/18/22 13:49 119/76 98 Room Air 10/18/22 08:00 Room Air 10/18/22 04:05 118/68 97 Room Air 10/17/22 23:45 124/75 98 Room Air 10/17/22 23:18 98 Room Air 10/17/22 22:02 106/68 98 Room Air 10/17/22 20:34 10/17/22 20:11 93 Room Air Transfer of Care Handoff Completed per policy Notes Mental Status: alert / awake / arousable and participated in evaluation Patient Amnestic to Procedure: Yes Nausea / Vomiting: adequately controlled Pain: adequately controlled Airway Patency, RR, SpO2: stable & adequate BP & HR: stable & adequate Hydration State: stable & adequate Anesthetic Complications: no major complications apparent and Pt Satisfied with anesthetic care
[2022-10-19] MEDS: ACETAMINOPHEN 1,000 MG/100 ML VIAL IV PRN (00:13)
[2022-10-19] MEDS: LACTATED RINGER'S 1,000 ML IV SCH (05:51)
[2022-10-19 07:41] VITALS: BP 104/68; PULSE 65; TEMP 97.7; O2SAT 93
[2022-10-19 08:52] LABS: Basophils # (auto) 0.02 K/uL (0-0.2); Basophils % (auto) 0.2 %; Eosinophils # (auto) 0.06 K/uL (0-0.50); Eosinophils % (auto) 0.6 %; Hematocrit (blood only) 38.6 % (42.0-52.0); Hemoglobin 13.4 g/dl (14.0-18.0); Immature Granulocytes # (auto) 0.04 K/uL (0.01-0.20); Immature Granulocytes % (auto) 0.4 %; Lymphocytes # (auto) 1.09 K/uL (1.2-3.4); Lymphocytes % (auto) 10.9 %; Mean Corpuscular Hemoglobin 32.2 pg (25.0-34.0); Mean Corpuscular Hgb Conc 34.7 g/dL (32.0-36.0); Mean Corpuscular Volume 92.8 fL (80.0-100.0); Mean Platelet Volume 9.9 fL (9.4-12.4); Monocytes # (auto) 0.93 K/uL (0.11-0.59); Monocytes % (auto) 9.3 %; Neutrophils # (auto) 7.89 K/uL (1.40-6.50); Neutrophils % (auto) 78.6 %; Platelet Count 228 K/uL (130-400); RDW Coefficient of Variation 12.7 % (11.5-14.5); Red Blood Count 4.16 M/uL (4.70-6.10); White Blood Count 10.03 K/ul (4.8-10.8)
[2022-10-19 09:12] LABS: BUN Creatinine Ratio 18.3 (10-20); Calcium 8.8 mg/dl (8.5-10.1); Creatinine Clr Calc Pharmacy 69.4 ml/min; Est GFR (African American) 87.5 ml/min; Est GFR (Non-African American) 75.5 ml/min; Potassium 4.5 mmol/L (3.5-5.1)
[2022-10-19] MEDS: VENLAFAXINE HCL XR 150 MG CAPXR PO SCH (10:16)
--- NOTE | 2022-10-19 10:55 | Surgery Progress Note ---
Date of Service October 19, 2022 Assessment & Plan (1) Acute cholecystitis: Plan: Resolved. POD 1 s/p laparoscopic cholecystectomy. Leukocytosis resolved. HD stable. Will discharge home today. Admission and Anticipated Discharge Date Admission Date: October 17, 2022 Subjective Patient doing well. Says the abdominal discomfort he had prior to surgery is resolved. Mentions some soreness at the RUQ subcostal incision sites. Tolerating oral intake. No N/V or abdominal pain. Discomfort is well controlled with oral pain medication. Physical Exam Constitutional: + well hydrated, cooperative and comfortable; no acute distress and not ill appearing Respiratory: normal respiratory effort and able to speak in complete sentences; no respiratory distress, no labored breathing, does not use accessory muscles, no cough and not tachypneic Cardiovascular: Rate/Rhythm: regular rate Gastrointestinal (Abdomen): Inspection/Auscultation: abdomen normal to inspection (incision sites with dry bandages); abdomen not distended Percussion/Palpation: + abdomen tender (appropriately at incision sites) and abdomen soft; no guarding and abdomen not rigid Results & Data Vital Signs (Past 12 Hours) Vital Signs Temp Pulse Resp BP Pulse Ox O2 Del Method 10/19/22 10:19 36.5 C 65 17 104/68 93 10/19/22 07:39 36.5 C 65 17 104/68 93 Room Air 10/18/22 23:02 36.4 C L 77 20 141/72 H 94 Room Air Laboratory Results Leukocytosis resolved. Neutrophil count decreasing almost resolved. PG Care Time/CCT Total # of Minutes Spent Total Time Spent with Patient: Total time spent is greater than 50% in coordination of care (as documented) at patient's floor/unit and/or counseling patient: Coding Level of Care Code 94245 SUB INP/OBS CARE 2/35MIN Diagnoses Acute cholecystitis K81.0
--- NOTE | 2022-10-20 05:55 | Electrocardiogram Report ---
Test Reason : Blood Pressure : / mmHG Vent. Rate : 082 BPM Atrial Rate : 082 BPM P-R Int : 166 ms QRS Dur : 096 ms QT Int : 378 ms P-R-T Axes : 033 -12 035 degrees QTc Int : 441 ms Normal sinus rhythm Nonspecific T wave abnormality Abnormal ECG When compared with ECG of 30-DEC-2020 13:38, Nonspecific T wave abnormality, worse in Lateral leads Confirmed by Maikel Damon ([id number]) on 10/20/2022 5:55:12 AM Referred By: REFERRED SELF Confirmed By:Maikel Damon
== END 2022-10-19 11:56 | disposition home or self-care (01) ==
LOC: 3N 20:06 → ED 20:06 → 3N 23:18

== ENCOUNTER 2025-06-08 11:55 | Observation (INO) ==
--- NOTE | 2025-06-08 12:19 | Emergency Department Note ---
Impression & Plan Amnesia, global, transient, Acute confusion ED Provider Note NAME: HELEN FRANCOIS AGE: 69 SEX: M : 1955 ARRIVES VIA: Walk-In INFORMANT: Patient ED PROVIDER(S): Andrew Riddle DO CHIEF COMPLAINT: Confusion trouble getting his words out HPI: Patient is a 69-year-old male with a past medical history of depression, hypertension, hyperlipidemia and obstructive sleep apnea who presents to the ER who woke up earlier this morning. He believes he was doing fine till about 9-9 30 when he started noticing trouble remembering things and getting his words out. He has no trouble with his long-term history but has issues with the short-term. Significant other at bedside provides additional history and notes that he was struggling and repeating himself and asking the same questions. He admits to feeling dizzy. Denies any chest pain or shortness of breath. No focal weakness in the arms or legs. No other exacerbating or remitting factors. ADDITIONAL HISTORY OBTAINED: Per HPI Chronic Medical/Social Conditions Affecting Care: Per HPI PAST MEDICAL HISTORY:See Below PAST SURGICAL HISTORY:See Below FAMILY HISTORY:See Below SOCIAL HISTORY:See Below HOME MEDICATIONS:See Below ALLERGIES:See Below VITALS:See Below PHYSICAL EXAMINATION: GENERAL: Sitting up in bed, alert, well appearing, well nourished, no distress, non-toxic EYE EXAM: normal conjunctiva. OROPHARYNX: no exudate, no erythema, lips, buccal mucosa, and tongue normal and mucous membranes are moist NECK: supple, no nuchal rigidity, no adenopathy, non-tender LUNGS: Clear to auscultation. Normal chest wall mechanics HEART: no murmurs, S1 normal and S2 normal ABDOMEN: abdomen soft, non-tender, normo-active bowel sounds, no masses, no rebound or guarding. BACK: Back is symmetrical on inspection and there is no deformity, no midline tenderness, no CVA tenderness. SKIN: no rashes and no bruising UPPER EXTREMITIES: upper extremities are grossly normal. LOWER EXTREMITIES: No pitting edema. NEURO EXAM: Normal sensorium, cranial nerves II-XIIintact, normal speech, no weakness of arms, no weakness of legs. No drift. Finger to nose intact. Gross sensation intact. MEDICAL DECISION MAKING: Patient is a 69-year-old male who presents to the ER for episode of confusion which started around 9-9 30 this morning. He notes no other complaints at this time. IV was established and blood work was obtained. Per who provided additional history he had trouble getting some words out and did not know the year. Labs showed no significant leukocytosis or anemia. INR unremarkable. BMP with a slightly elevated glucose at 106. LFTs bilirubin mag and troponin was negative. Patient was typed and screened. Patient was seen evaluated by [facility]. They recommended MRIs and EEG. CT angios of the head and neck were negative. Case was discussed with the hospitalist for further evaluation management and treatment. I do favor this most consistent with a transient global amnesia as after talking with him it seems to involve sequence of events which occurred today he does not remember. All of his history otherwise he can recall. Consults/Care Managements Discussions: Per [facility] Triage Nursing notes reviewed. Limited review of prior medical records performed Vital Signs: reviewed and remarkable for no significant abnormalities Differential diagnosis: Differential Diagnosis includes but is not limited to ischemic Stroke, hemorrhagic stroke, bells palsy, mass, neoplasm, migraine headache, seizure, subarachnoid hemorrhage, TIA, and transient global amnesia. ER treatment provided: See below Diagnostics interpreted by me include EKG and cardiac monitoring as listed below: -Cardiac Monitoring: An order was placed for continuous cardiac monitoring. The monitor shows a rate of 82 with sinus rhythm. -ECG: Sinus rhythm rate 87 Normal axis No PVCs QTc 428 -Laboratory studies:Interpreted by me as stated above in MDM and shown below. 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 Received 1 bag fluid. History of COVID-19 (08/2020) no hx hospitalization. 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 Surgical History History of right shoulder replacement (09/12/24) Status post reverse total replacement of left shoulder (01/2021) History of anesthesia reaction (10/2022) Hx laparoscopic cholecystectomy (10/18/22) History of esophagogastroduodenoscopy (EGD) History of tooth extraction Status post repair of hydrocele Hx of vasectomy History of colonoscopy History of repair of right rotator cuff History of lumbar laminectomy Hx of LASIK Family History Mother Dementia Hyperlipemia Father Cerebral artery occlusion with cerebral infarction Abdominal aortic aneurysm Peripheral vascular disease Brother Skin cancer Uncle Colorectal cancer Grandfather Lung cancer Family/Other Pancreatic cancer Other No family history of adverse response to anesthesia Denies family history of Ovarian cancer Prostate cancer Myocardial infarction Breast cancer Social History (Updated 04/03/25 @ 13:03 by Rizwana Howard LPN) Smoking Status: Never smoker Second Hand Exposure: No; Do You Dip or Chew Tobacco: No; Hx Alcohol Use: No Hx Substance Use: No Preferred Language: Khmer Communication Ability: Effective Visual Impairment: Diminished Hearing Ability: Hard of Hearing Fountain Attendant Required: No Beliefs That Will Affect Care: None marital status: Current Living Situation: Spouse current occupational status: retired How many Children do You have: 1 Other Information That Helps Us Care for You: No Feels Safe at Home: Yes Safety Concerns: Feels Safe At This Time Childhood Exposure to Second-Hand Smoke: Yes Diet: regular caffeine: Yes during the past year weight has: remained stable Dental Care, Regularly: Yes Physical Activity Frequency: Other Physical Activity Frequency Comment: active lifestyle Seatbelt Use: always Sunscreen Use: Yes Gender Identity: Male Assistive Devices: None Allergies Allergies Allergy/AdvReac Type Severity Reaction Status Date / Time No Known Allergies Allergy Verified 05/13/25 13:28 Home Meds Home Medications Medication Instructions Recorded Confirmed lisinopril 10 mg tablet 10 mg PO QAM 01/13/25 06/08/25 venlafaxine 150 mg 150 mg PO QAM 01/23/25 06/08/25 capsule,extended release 24 hr (Effexor XR) hydroxyzine HCl 25 mg tablet 10 mg PO HS PRN insomnia 04/03/25 06/08/25 aripiprazole 2 mg tablet (Abilify) 1 mg PO DAILY 05/13/25 06/08/25 Previous Rx's Medication Instructions Recorded venlafaxine 75 mg capsule,extended 75 mg PO DAILY #90 caps 02/18/25 release 24 hr (Effexor XR) Auto Titrating CPAP #1 ea 03/17/25 CPAP Supplies #1 ea 04/03/25 omeprazole 40 mg capsule,delayed 40 mg PO UD PRN gastric reflux #90 04/03/25 release caps Results & Data (ED) Vital Signs Vital Signs - 24 hr 06/08/25 11:58 06/08/25 12:35 06/08/25 12:42 Temperature 36.7 C Temperature Source Temporal Artery Scan Pulse Rate 84 90 Pulse Rate [Apical] 90 Pulse Rhythm [Apical] Regular Respiratory Rate 18 24 Respiratory Effort / Characteristics Non-Labored Spontaneous Non-Labored Spontaneous Respiratory Depth Normal Normal Respiratory Pattern Regular Blood Pressure 140/94 Blood Pressure [Right Arm] 147/93 H Blood Pressure Mean 109 Blood Pressure Mean [Right Arm] 111 Blood Pressure Position Sitting Pulse Oximetry 94 92 Oxygen Delivery Method Room Air Room Air Sepsis Recent Fever Within 48 Hours No Sepsis New/Unexplained Change in Mental Status No Sepsis Action Taken by Nursing No Action Required Laboratory Data 06/08/25 12:09 06/08/25 12:09 Lab Results 06/08/25 06/08/25 06/08/25 Range/Units 12:09 12:18 12:34 WBC 9.60 (4.8-10.8) K/ul RBC 5.36 (4.70-6.10) M/uL Hgb 16.8 (14.0-18.0) g/dl POC Hgb 17.0 (14.0-18.0) g/dl Hct 48.5 (42.0-52.0) % POC Hct 50 (42-52) % MCV 90.5 (80.0-100.0) fL MCH 31.3 (25.0-34.0) pg MCHC 34.6 (32.0-36.0) g/dL RDW Std Deviation 39.6 (36.4-46.3) fL RDW Coeff of Vivian 12.2 (11.5-14.5) % Plt Count 321 (130-400) K/uL MPV 9.2 L (9.4-12.4) fL Immature Gran % (Auto) 0.5 % Neut % (Auto) 77.4 % Lymph % (Auto) 14.2 % [place] % (Auto) 6.9 % Eos % (Auto) 0.5 % Baso % (Auto) 0.5 % Neut # (Auto) 7.43 H (1.40-6.50) K/uL Lymph # (Auto) 1.36 (1.20-3.40) K/uL [place] # (Auto) 0.66 H (0.11-0.59) K/uL Eos # (Auto) 0.05 (0.00-0.50) K/uL Baso # (Auto) 0.05 (0.00-0.20) K/uL Immature Gran # (Auto) 0.05 (0.01-0.20) K/uL PT 10.7 (9.0-12.0) Seconds INR 1.0 (0.9-1.1) APTT 25 (21-31) Seconds PTT Ratio 0.9 POC Sodium 139 (135-144) mmol/L Sodium 139 (136-145) mmol/L POC Potassium 4.2 (3.3-5.0) mmol/L Potassium 4.3 (3.5-5.1) mmol/L POC Chloride 103 (101-112) mmol/L Chloride 103 (98-107) mmol/L Carbon Dioxide 27 (21-32) mmol/L POC Total CO2 24 (24-31) mmol/L Anion Gap 9 (3-11) POC Anion Gap 18.0 (16-25) mmol/L POC BUN 23 H (7-18) mg/dl BUN 22 (6-23) mg/dl Creatinine 1.13 (0.6-1.4) mg/dl POC Creatinine 1.2 (0.6-1.3) mg/dl Est Cr Clr Drug Dosing 63.0 ml/min eGFR 71.24 BUN/Creatinine Ratio 19.5 (10-20) Glucose 106 H (70-99(Fasting)) mg/dl POC Glucose (other) 109 H (70-99) mg/dl Calcium 9.8 (8.6-10.3) mg/dl POC Ioniz Calcium Bimal 1.23 (1.12-1.32) mmol/l Magnesium 2.1 (1.7-2.4) mg/dl Total Bilirubin 0.5 (0.2-1.0) mg/dl AST 26 (13-39) U/L ALT 29 (7-52) U/L Alkaline Phosphatase 83 (34-104) U/L Troponin I High Sens 12.8 (0-20) pg/ml Total Protein 7.7 (6.0-8.3) gm/dl Albumin 4.2 (3.4-5.0) gm/dl Globulin 3.5 (2.5-4.0) gm/dl Albumin/Globulin Ratio 1.2 (0.9-2) Blood Type A Positive Antibody Screen NEGATIVE Administered Medications Discontinued Medications Ioversol (Optiray 320 125ml) 112 ml IV ONCE ONE Stop: 06/08/25 12:28 Last Admin: 06/08/25 12:27 Dose: 112 ml Documented By: RAFA Imaging Data Radiologist's Impression: Head CT 06/08/25 12:14 CT head/brain wo con CLINICAL HISTORY: 69 years-old Male with neuro deficit, acute stroke suspected. Acute stroke like symptoms TECHNIQUE: Multiple axial CT images of the head were obtained without contrast. A dose lowering technique was utilized adhering to the principles of ALARA. COMPARISON: CTA head of same day FINDINGS: No acute intracranial hemorrhage, midline shift, intracranial mass, hydrocephalus, territorial ischemia or abnormal extra-axial collection. Mildly motion degraded exam. The calvarium is intact. The paranasal sinuses, mastoid air cells, and middle ear cavities are clear. IMPRESSION: No acute intracranial abnormality identified. ACT 112: Negative or not required by law. The above report was generated using voice recognition software. It may contain grammatical, syntax or spelling errors. Electronically signed by: Maciej Stephens M.D. 06/08/2025 12:43 PM Head CTA 06/08/25 12:14 CT ANGIOGRAM OF THE BRAIN CLINICAL HISTORY: Neurological deficit. Stroke like symptoms. COMPARISON STUDY: Unenhanced CT of the brain performed concurrently on 06/08/2025. TECHNIQUE: Following the IV administration of 112 cc of Optiray 320, CT angiogram of the brain was performed from the skull base to the vertex. Images are reviewed in the axial, sagittal, and coronal planes. 3-D MIPS images are created and assessed. IV contrast was administered without complication. A dose lowering technique was utilized adhering to the principles of ALARA. CT DOSE: 1143.28 mGy.cm FINDINGS: Brain parenchyma: There is no evidence of hemorrhage or mass effect noting angiographic phase technique. There is no evidence of enhancing mass lesion on the angiogram phase images. No extra-axial fluid collection is seen. Walker-white matter differentiation is preserved. Ventricles, sulci, and cisterns: Normal in configuration. CT angiogram of the brain: There is mild atherosclerotic calcification of the cavernous carotid arteries. The internal carotid arteries at the skull base are patent, as are the anterior and middle cerebral arteries. The vertebrobasilar system and posterior cerebral arteries are patent. The left vertebral artery is dominant. There is origin of the left posterior cerebral artery. There is no aneurysm, high-grade stenosis, or focal vessel cutoff identified throughout the intracranial circulation. Dural sinuses: Clear as visualized. Orbits: The bony orbits are intact. The orbital contents are normal as visualized. Sinuses and mastoids: There is trace mucosal thickening in the right maxillary antrum. The paranasal sinuses are otherwise clear. The mastoid air cells are well pneumatized. Calvarium: Unremarkable. IMPRESSION: 1. There is no evidence of hemorrhage or mass effect noting angiographic phase technique. 2. Unremarkable CT angiogram of the brain. ACT 112: Negative or not required by law. Electronically signed by: Lang Bowden M.D. 06/08/2025 1:00 PM Neck CTA 06/08/25 12:14 CT ANGIOGRAPHY OF THE NECK WITH CONTRAST CLINICAL HISTORY: neuro deficit, acute stroke suspected COMPARISON STUDY: CT of the neck September 19, 2019. Technique: CT angiography of the carotid and vertebral arteries was obtained using Optiray and 3D reconstruction on an independent workstation. NASCET criteria was utilized. Automated exposure control was utilized for the study. A dose lowering technique was utilized adhering to the principles of ALARA. Findings: Visualized portions of the lung apices are unremarkable. There are no cervical spine fracture. No cervical lymphadenopathy is present. The bilateral common carotid, cervical internal carotid and vertebral arteries are patent. No stenosis, aneurysm or dissection within the neck is present. There is mild atherosclerotic plaque within the proximal bilateral internal carotid arteries without stenosis. The left vertebral artery is dominant. The CTA of the head will be reported separately. There is persistence of the left posterior cerebral artery. IMPRESSION: No stenosis or dissection within the bilateral common carotid, cervical internal carotid or vertebral arteries. ACT 112: Negative or not required by law. Electronically signed by: Allan Ko M.D. 06/08/2025 12:39 PM Discharge Plan Visit Data Chief Complaint: TIA Symptoms Stated Complaint: DIZZESS CONFUSION ED Provider: Andrew Riddle Discharge Problem: Amnesia, global, transient, Acute confusion Patient Disposition: Admitted As Inpatient Condition: Fair Discharge Instructions Interventions: ED Discharge Assessment Last Done: 06/08/25 15:57
[2025-06-08] MEDS: OPTIRAY 320 125ml IV ONE (12:27)
--- NOTE | 2025-06-08 12:42 | CT Scan Report ---
CT ANGIOGRAPHY OF THE NECK WITH CONTRAST CLINICAL HISTORY: neuro deficit, acute stroke suspected COMPARISON STUDY: CT of the neck September 19, 2019. Technique: CT angiography of the carotid and vertebral arteries was obtained using Optiray and 3D rec onstruction on an independent workstation. NASCET criteria was utilized. Automated exposure control was utilized for the study. A dose lowering technique was utilized adhering to the principles of ALA RA. Findings: Visualized portions of the lung apices are unremarkable. There are no cervical spine fractu re. No cervical lymphadenopathy is present. The bilateral common carotid, cervical internal carotid a nd vertebral arteries are patent. No stenosis, aneurysm or dissection within the neck is present. The re is mild atherosclerotic plaque within the proximal bilateral internal carotid arteries without sami nosis. The left vertebral artery is dominant. The CTA of the head will be reported separately. There is persistence of the left posterior cerebral artery. IMPRESSION: No stenosis or dissection within the bilateral common carotid, cervical internal carotid or vertebral arteries. ACT 112: Negative or not required by law. Electronically signed by: Allan Ko M.D. 06/08/2025 12:39 PM
--- NOTE | 2025-06-08 12:44 | CT Scan Report ---
CT head/brain wo con CLINICAL HISTORY: 69 years-old Male with neuro deficit, acute stroke suspected. Acute stroke like sy mptoms TECHNIQUE: Multiple axial CT images of the head were obtained without contrast. A dose lowering tech nique was utilized adhering to the principles of ALARA. COMPARISON: CTA head of same day FINDINGS: No acute intracranial hemorrhage, midline shift, intracranial mass, hydrocephalus, territorial ischem ia or abnormal extra-axial collection. Mildly motion degraded exam. The calvarium is intact. The paranasal sinuses, mastoid air cells, and middle ear cavities are clear . IMPRESSION: No acute intracranial abnormality identified. ACT 112: Negative or not required by law. The above report was generated using voice recognition software. It may contain grammatical, syntax o r spelling errors. Electronically signed by: Maciej Stephens M.D. 06/08/2025 12:43 PM
[2025-06-08 12:54] LABS: Hematocrit (blood only) 48.5 % (42.0-52.0); Hemoglobin 16.8 g/dl (14.0-18.0); Immature Granulocytes # (auto) 0.05 K/uL (0.01-0.20); Immature Granulocytes % (auto) 0.5 %; Mean Corpuscular Hemoglobin 31.3 pg (25.0-34.0); Mean Corpuscular Volume 90.5 fL (80.0-100.0); Platelet Count 321 K/uL (130-400); RDW Standard Deviation 39.6 fL (36.4-46.3); Red Blood Count 5.36 M/uL (4.70-6.10); White Blood Count 9.60 K/ul (4.8-10.8)
[2025-06-08 12:59] LABS: Alanine Aminotransferase 29.0 U/L (7-52); Albumin Globulin Ratio 1.2 (0.9-2); Albumin Level 4.2 gm/dl (3.4-5.0); Alkaline Phosphatase 83.0 U/L (34-104); Anion Gap 9.0 (3-11); Bilirubin,Total 0.5 mg/dl (0.2-1.0); Blood Urea Nitrogen 22.0 mg/dl (6-23); Calcium 9.8 mg/dl (8.6-10.3); Carbon Dioxide 27.0 mmol/L (21-32); Chloride 103.0 mmol/L (98-107); Creatinine Clr Calc Pharmacy 63.0 ml/min; Globulin 3.5 gm/dl (2.5-4.0); Glucose 106.0 mg/dl (70-99(Fasting)); Magnesium 2.1 mg/dl (1.7-2.4); Potassium 4.3 mmol/L (3.5-5.1); Sodium 139.0 mmol/L (136-145); Total Protein 7.7 gm/dl (6.0-8.3)
--- NOTE | 2025-06-08 13:02 | CT Scan Report ---
CT ANGIOGRAM OF THE BRAIN CLINICAL HISTORY: Neurological deficit. Stroke like symptoms. COMPARISON STUDY: Unenhanced CT of the brain performed concurrently on 06/08/2025. TECHNIQUE: Following the IV administration of 112 cc of Optiray 320, CT angiogram of the brain was pe rformed from the skull base to the vertex. Images are reviewed in the axial, sagittal, and coronal pl anes. 3-D MIPS images are created and assessed. IV contrast was administered without complication. A dose lowering technique was utilized adhering to the principles of ALARA. CT DOSE: 1143.28 mGy.cm FINDINGS: Brain parenchyma: There is no evidence of hemorrhage or mass effect noting angiographic phase techniq ue. There is no evidence of enhancing mass lesion on the angiogram phase images. No extra-axial fluid collection is seen. Walker-white matter differentiation is preserved. Ventricles, sulci, and cisterns: Normal in configuration. CT angiogram of the brain: There is mild atherosclerotic calcification of the cavernous carotid arter ies. The internal carotid arteries at the skull base are patent, as are the anterior and middle cereb ral arteries. The vertebrobasilar system and posterior cerebral arteries are patent. The left vertebr al artery is dominant. There is origin of the left posterior cerebral artery. There is no aneur ysm, high-grade stenosis, or focal vessel cutoff identified throughout the intracranial circulation. Dural sinuses: Clear as visualized. Orbits: The bony orbits are intact. The orbital contents are normal as visualized. Sinuses and mastoids: There is trace mucosal thickening in the right maxillary antrum. The paranasal sinuses are otherwise clear. The mastoid air cells are well pneumatized. Calvarium: Unremarkable. IMPRESSION: 1. There is no evidence of hemorrhage or mass effect noting angiographic phase technique. 2. Unremarkable CT angiogram of the brain. ACT 112: Negative or not required by law. Electronically signed by: Lang Bowden M.D. 06/08/2025 1:00 PM
[2025-06-08 13:14] LABS: INR 1.0 (0.9-1.1); Partial Thromboplastin Time 25 Seconds (21-31); Prothrombin Time 10.7 Seconds (9.0-12.0)
--- NOTE | 2025-06-08 13:50 | Electrocardiogram Report ---
Test Reason : Blood Pressure : */* mmHG Vent. Rate : 87 BPM Atrial Rate : 87 BPM P-R Int : 176 ms QRS Dur : 100 ms QT Int : 356 ms P-R-T Axes : 40 -24 23 degrees QTcB Int : 428 ms Normal sinus rhythm Normal ECG When compared with ECG of 22-Jul-2024 15:13, No significant change was found Confirmed by Geoffrey Reyes ([id number]) on 06/08/2025 1:49:49 PM Referred By: Confirmed By: Geoffrey Reyes
[2025-06-08] MEDS ORDERED: PHARMACIST DISCHARGE MED REC CONSULT PRN (14:07)
--- NOTE | 2025-06-08 14:34 | History & Physical Report ---
Date of Service June 08, 2025 Assessment & Plan (1) Amnesia, global, transient: Plan: Willl admit to PCU Likely TGA. diff. diagnosis: TIA, complex migraine. Will obtain MRI brain CTA CT head and neck were negative Patient is back to his baseline. WIll evaluate how he does overnight. WIll discuss with Neuro in the A< (2) Depression: Plan: resume home meds (3) Hypertriglyceridemia: Plan: will monitor. History of Present Illness Chief Complaint: word finding. Primary Care Provider: Jamar Powers DO 69 yo male with hypertriglyceridemia, depression, prediabetes, and Collazo's Palsy present to the hospital with difficulty finding words. Patient's was out of the home getting a shot when he noticed something wa soff and gave her a call. This was around 10:30, he asked her multiple times if she was coming home during the phone call. Each time, she would say yes and he would ask her where she was. He also did not know the date, which was odd as he had a bbig trip scheduled the following day which he looks forward to. His , Liv reports, he did not have any garbled speech and his speech was clear. After the phone call, she called the ambulance service, when she came home, she realized he was unable to recall the president's name. She states that he is his biggest supporter and found is strange that he could not say his name. On the way to the hospital, she felt like he was slowly clearing up and once he had the CT scan around 12:15, he was back to his normal self. Allergies Allergy/AdvReac Type Severity Reaction Status Date / Time No Known Allergies Allergy Verified 05/13/25 13:28 Home Medications Medication Instructions Recorded Confirmed Type lisinopril 10 mg tablet 10 mg PO QAM 01/13/25 06/08/25 History venlafaxine 150 mg 150 mg PO QAM 01/23/25 06/08/25 History capsule,extended release 24 hr (Effexor XR) venlafaxine 75 mg capsule,extended 75 mg PO DAILY #90 caps 02/18/25 06/08/25 Rx release 24 hr (Effexor XR) Auto Titrating CPAP #1 ea 03/17/25 05/13/25 Rx CPAP Supplies #1 ea 04/03/25 05/13/25 Rx hydroxyzine HCl 25 mg tablet 10 mg PO HS PRN insomnia 04/03/25 06/08/25 History omeprazole 40 mg capsule,delayed 40 mg PO UD PRN gastric reflux #90 04/03/25 06/08/25 Rx release caps aripiprazole 2 mg tablet (Abilify) 1 mg PO DAILY 05/13/25 06/08/25 History Past Med/Surg History Problem List Acute confusion (Acute) Amnesia, global, transient (Acute) VI (obstructive sleep apnea) 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 Received 1 bag fluid. History of COVID-19 (08/2020) no hx hospitalization. 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 Surgical History History of right shoulder replacement (09/12/24) reverse Status post reverse total replacement of left shoulder (01/2021) LMA + regional at [facility] History of anesthesia reaction (10/2022) "Rambunctious" with gallbladder surgery anesthesia emergence Hx laparoscopic cholecystectomy (10/18/22) History of esophagogastroduodenoscopy (EGD) History of tooth extraction Status post repair of hydrocele Hx of vasectomy History of colonoscopy History of repair of right rotator cuff History of lumbar laminectomy Hx of LASIK Family History Mother Dementia Hyperlipemia Father , age 75 Cerebral artery occlusion with cerebral infarction Abdominal aortic aneurysm Peripheral vascular disease Brother Skin cancer Uncle Colorectal cancer Grandfather Lung cancer Family/Other Pancreatic cancer Other No family history of adverse response to anesthesia Denies family history of Ovarian cancer Prostate cancer Myocardial infarction Breast cancer Social History Smoking Status: Never smoker Second Hand Exposure: No; Do You Dip or Chew Tobacco: No; Hx Alcohol Use: No Hx Substance Use: No Preferred Language: [place] Communication Ability: Effective Visual Impairment: Diminished Hearing Ability: Hard of Hearing 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 Beliefs That Will Affect Care: None marital status: Current Living Situation: Spouse current occupational status: retired How many Children do You have: 1 Other Information That Helps Us Care for You: No Feels Safe at Home: Yes Safety Concerns: Feels Safe At This Time Childhood Exposure to Second-Hand Smoke: Yes Diet: regular caffeine: Yes during the past year weight has: remained stable Dental Care, Regularly: Yes Physical Activity Frequency: Other Physical Activity Frequency Comment: active lifestyle Seatbelt Use: always Sunscreen Use: Yes Gender Identity: Male Assistive Devices: None Review of Systems Constitutional: no fever and no body aches Eyes: no blind spots Ear, Nose, Mouth, Throat: no ear pain Respiratory: no cough Cardiovascular: no chest pain Gastrointestinal: no abdominal pain Genitourinary: no dysuria Musculoskeletal: no back pain Integumentary: no acne Neurologic: + headache(s) (once a month, no photopho azul, or phonophobia); no gait abnormality Psychiatric: no behavioral changes Endocrine: no fatigue Hematologic / Lymphatic: no easy bleeding Allergy / Immunological: no GI upset with certain foods Physical Exam Constitutional: WD/WN, vitals as above Eyes: PERRL, conjunctivae normal, anicteric sclerae ENMT: external ear and nose normal, oropharynx normal Neck: trachea midline, no thyromegaly Respiratory: normal respiratory effort, lungs clear to auscultation Cardiovascular: RRR, no murmur, no edema Gastrointestinal (Abdomen): normal bowel sounds, soft, nontender, no hepatosplenomegaly Musculoskeletal: no cyanosis or clubbing, extremities motor strength 5/5 Skin: no rashes, warm and dry Neurologic: CN's II-XI intact bilaterally Left sided facial dropp with decreased movements in his eyebrows on the left Psychiatric: A+Ox3, euthymic affect Lymphatic: no cervical or axillary lymphadenopathy Results & Data Results & Data Vital Signs (Past 12 Hours) Vital Signs Temp Pulse Pulse Resp BP BP Pulse Ox 06/08/25 12:42 90 06/08/25 12:35 90 24 147/93 H 92 06/08/25 11:58 36.7 C 84 18 140/94 94 O2 Del Method 06/08/25 12:42 06/08/25 12:35 Room Air 06/08/25 11:58 Room Air PG Care Time/CCT Total # of Minutes Spent Total Time Spent with Patient: Total time spent is greater than 50% in coordination of care (as documented) at patient's floor/unit and/or counseling patient: Coding Level of Care Code 41609 INT INP/OBS CARE 3/75MIN Diagnoses Amnesia, global, transient G45.4 Other depression F32.A Depression Type: unspecified Hypertriglyceridemia E78.1 (2) Depression Depression Type: unspecified Qualified Code(s): F32.A - Depression, unspecified
--- NOTE | 2025-06-08 15:42 | Magnetic Resonance Report ---
MR brain wo con HISTORY: 69 years-old Male stroke acute stroke like symptoms COMPARISON: Head CT same day TECHNIQUE: Multiplanar multisequence MRI of the brain was obtained without IV contrast FINDINGS: No restricted diffusion to suggest acute or subacute infarct. Midline structures are within normal li mits. No acute intracranial hemorrhage, midline shift, abnormal extra-axial collection, hydrocephalus or intra-axial mass. There are a few scattered subcentimeter foci of T2/FLAIR prolongation within th e white matter which are nonspecific and favored early changes of chronic microvascular ischemic dise ase. Cerebral venous sinuses and major arterial flow voids appear patent. Skull, orbits and soft tissues a re unremarkable. Mastoid air cells and paranasal sinuses are clear. IMPRESSION: 1. No acute intracranial abnormality. No acute infarct. 2. Suggestion of mild chronic microvascular ischemic disease. ACT 112: Negative or not required by law. The above report was generated using voice recognition software. It may contain grammatical, syntax o r spelling errors. Electronically signed by: Maciej Stephens M.D. 06/08/2025 3:41 PM
[2025-06-08] MEDS ORDERED: NON-FORMULARY MEDICATION (Auto Titrating Cpap misc) SCH (21:00)
[2025-06-08] MEDS ORDERED: NON-FORMULARY MEDICATION (Cpap Supplies misc) SCH (21:00)
[2025-06-09 03:29] VITALS: TEMP 97.7
[2025-06-09 07:24] LABS: Hematocrit (blood only) 47.4 % (42.0-52.0); Hemoglobin 16.2 g/dl (14.0-18.0); Immature Granulocytes # (auto) 0.06 K/uL (0.01-0.20); Immature Granulocytes % (auto) 0.8 %; Mean Corpuscular Hemoglobin 30.9 pg (25.0-34.0); Mean Corpuscular Volume 90.5 fL (80.0-100.0); Platelet Count 297 K/uL (130-400); RDW Standard Deviation 41.1 fL (36.4-46.3); Red Blood Count 5.24 M/uL (4.70-6.10); White Blood Count 7.88 K/ul (4.8-10.8)
[2025-06-09 07:41] LABS: Anion Gap 7.0 (3-11); Blood Urea Nitrogen 22.0 mg/dl (6-23); Calcium 9.3 mg/dl (8.6-10.3); Carbon Dioxide 27.0 mmol/L (21-32); Chloride 103.0 mmol/L (98-107); Cholesterol 211.0 mg/dl (0-200); Creatinine Clr Calc Pharmacy 64.9 ml/min; Glucose 111.0 mg/dl (70-99(Fasting)); HDL Cholesterol 49.0 mg/dl; Potassium 4.1 mmol/L (3.5-5.1); Sodium 137.0 mmol/L (136-145); Triglycerides 224.0 mg/dl (0-150)
[2025-06-09 07:46] VITALS: BP 145/100; PULSE 64; RESP 16; O2SAT 96
[2025-06-09] MEDS: ASPIRIN 81 MG ECTAB PO SCH (08:54)
[2025-06-09] MEDS: ATORVASTATIN 40 MG TAB PO SCH (08:55)
[2025-06-09] MEDS: VENLAFAXINE HCL XR 75 MG CAPXR PO SCH (08:55)
--- NOTE | 2025-06-09 08:57 | Electroencephalogram ---
EEG Procedure Note Date of Service June 09, 2025 Start / End Times Start Time: 823 End Time: [address] Guevara History 69-year-old with 2-1/2-hour period of memory impairment June 08 Home Medication List Medication Instructions Recorded Confirmed Type lisinopril 10 mg tablet 10 mg PO QAM 01/13/25 06/08/25 History venlafaxine 150 mg 150 mg PO QAM 01/23/25 06/08/25 History capsule,extended release 24 hr (Effexor XR) venlafaxine 75 mg capsule,extended 75 mg PO DAILY #90 caps 02/18/25 06/08/25 Rx release 24 hr (Effexor XR) Auto Titrating CPAP #1 ea 03/17/25 05/13/25 Rx CPAP Supplies #1 ea 04/03/25 05/13/25 Rx hydroxyzine HCl 25 mg tablet 10 mg PO HS PRN insomnia 04/03/25 06/08/25 History omeprazole 40 mg capsule,delayed 40 mg PO UD PRN gastric reflux #90 04/03/25 06/08/25 Rx release caps aripiprazole 2 mg tablet (Abilify) 1 mg PO DAILY 05/13/25 06/08/25 History Inpatient Medication List Discontinued Medications Ioversol (Optiray 320 125ml) 112 ml IV ONCE ONE Stop: 06/08/25 12:28 Last Admin: 06/08/25 12:27 Dose: 112 ml Documented By: RAFA Description This is a 21 electrode EEG with a single channel dedicated to limited EKG. The electrodes were placed in accordance with the International 10-20 system. Interpretation The predominant background activity consists of a very well modulated 10 Hz activity, of up to 40 mV in amplitude,seen symmetrically distributed over the posterior head regions bilaterally. This activity attenuates with eye-opening and other alerting procedures. Photic stimulation was performed and elicited no change in the background activity and no abnormal responses were seen. Hyperventilation was not performed. A minimal amount of muscle and movement artifact activity contaminated the recording, and did not hinder interpretation to any significant degree. Throughout the waking portion of the recording, no focal abnormalities, abnormal slow activity, or potentially epileptogenic discharges were seen. The patient entered the drowsy state with no further activation. Deeper stages of sleep were not recorded In summary, this EEG was normal during wakefulness and drowsiness. No focal abnormalities, potentially epileptogenic discharges, or abnormal slow activity were seen. Clinical Correlation The absence of potentially epileptogenic activity does not exclude a seizure disorder, since interictally, EEGs can be normal. Clinical correlation is required. [facility] EEG Procedure Codes Indication for Procedure (1) Amnesia, global, transient: Neurology Neurology: 76166 EEG include record awake & drowsy
[2025-06-09] MEDS: VENLAFAXINE HCL XR 150 MG CAPXR PO SCH (08:58)
[2025-06-09] MEDS ORDERED: STROKE PATIENT DISCHARGE STA (09:02)
--- NOTE | 2025-06-09 09:46 | Discharge Summary ---
Discharge Summary Date of Service June 09, 2025 Principal Dx & Hospital Course #1 = Principal Diagnosis (1) Amnesia, global, transient: Willl admit to PCU Likely TGA. Discussed with Neurology. Agree with above diagnosis,patient with hypertension. Recommended adding calcium channel emanuel for prevention and better BP control. Patient will take first dose now and next dose tomorrow night. MRI brain, CTA head neck were negative. Patient can be discharged. (2) Depression: resume home meds (3) Hypertriglyceridemia: will monitor. Admission HPI Per Admitting Provider 69 yo male with hypertriglyceridemia, depression, prediabetes, and Collazo's Palsy present to the hospital with difficulty finding words. Patient's was out of the home getting a shot when he noticed something wa soff and gave her a call. This was around 10:30, he asked her multiple times if she was coming home during the phone call. Each time, she would say yes and he would ask her where she was. He also did not know the date, which was odd as he had a bbig trip scheduled the following day which he looks forward to. His , Liv reports, he did not have any garbled speech and his speech was clear. After the phone call, she called the ambulance service, when she came home, she realized he was unable to recall the president's name. She states that he is his biggest supporter and found is strange that he could not say his name. On the way to the hospital, she felt like he was slowly clearing up and once he had the CT scan around 12:15, he was back to his normal self. Discharge Exam Constitutional WD/WN, vitals as above Neck trachea midline, no thyromegaly Respiratory normal respiratory effort, lungs clear to auscultation Cardiovascular RRR, no murmur, no edema Musculoskeletal Extremities: strength 5/5 throughout Discharge Plan Discharge Items Patient Disposition: Home - Self-Care Reason For Visit: STROKE LIKE SYMPTOMS Discharge Diagnosis: TRANSIENT GLOBAL AMNESIA Condition on Discharge: Fair Activity: Resume your previous activity Non-emergency contact: Primary Care Provider Call non-emergency contact if: you have any medication questions Follow-up/Referrals: Jamar Powers, [Primary Care Provider] - 06/15/25 11:30 am (Follow up scheduled on 06/15/25 at 11:30 with Jamar Powers) Diet: Regular Addtl Attending Provider Instructions: This was a transient global aphasia (TGA). The prognosis for TGA is excellent.Most people recover completely within a few days, with no lasting cognitive impairment.However, a small percentage of people may experience recurrent episodes of TGA Best way to prevent them is with adequate control of blood pressure. We will place you on amlodipine at night at a very small dose. side effects: leg swelling, but this usually occurs at a higher dose. Pending Studies at Discharge: No Stand-Alone Forms: My [facility], Smoking Cessation Medications and DC Order Prescriptions: New amlodipine 2.5 mg tablet 2.5 mg PO PM Qty: 30 0RF Rx Instructions: First dose tomorrow: 06/10 Continued (DME) Auto Titrating CPAP Misc See Rx Instructions .Route Qty: 1 0RF Rx Instructions: 5-15 cm venlafaxine [Effexor XR] 75 mg capsule,extended release 24hr 75 mg PO DAILY Qty: 90 3RF Rx Instructions: take with 150 mg for a total of 225 mg aripiprazole [Abilify] 2 mg tablet 1 mg PO DAILY Rx Instructions: one half tablet daily hydroxyzine HCl 25 mg tablet 10 mg PO HS PRN (Reason: insomnia) omeprazole 40 mg capsule,delayed release(DR/EC) 40 mg PO UD PRN (Reason: gastric reflux) Qty: 90 3RF (DME) CPAP Supplies Misc See Rx Instructions .Route Qty: 1 0RF Rx Instructions: change in cpap mask lisinopril 10 mg tablet 10 mg PO QAM venlafaxine [Effexor XR] 150 mg capsule,extended release 24hr 150 mg PO QAM Discharge Orders: Discharge Order (Routine); Ordered 06/09/25 Ordered By: Braden Guevara Admission Data Admit Date/Time: 06/08/25 14:05 Attending Provider: Braden Guevara Admit Provider: Braden Guevara Primary Care Provider: Jamar Powers Other Providers: Jeremi Mcnally Hospital Stay Data Consultations 06/08/25 13:31 ED Decision to Admit Stat Diagnostic Imagining Performed 06/08/25 12:14 CT angio head w con Stat CT angio neck with con Stat CT head/brain wo con Stat 06/08/25 14:20 MRI Brain [MR brain wo con] Urgent Pending Results Patient Have Any Pending Studies at Discharge: No Discharge Instructions Given to Patient (Per Discharging Provider) This was a transient global aphasia (TGA). The prognosis for TGA is excellent.Most people recover completely within a few days, with no lasting cognitive impairment.However, a small percentage of people may experience recurrent episodes of TGA Best way to prevent them is with adequate control of blood pressure. We will place you on amlodipine at night at a very small dose. side effects: leg swelling, but this usually occurs at a higher dose. Total Time Total Time Spent Total Time Spent (In Minutes): 35 Included time spent discussing with Neurologist, formulating discharge pakn and writing instructions, discussing with patient and . Coding Level of Care Code 01096 INP/OBS DISCH >30 MIN Diagnoses Amnesia, global, transient G45.4 Other depression F32.A Depression Type: unspecified Hypertriglyceridemia E78.1
[2025-06-09 10:03] LABS: Hemoglobin A1C 5.8 % (4.5-5.6)
--- NOTE | 2025-06-09 12:34 | XCELERA ---
[id number] \\[id number]
== END 2025-06-09 10:18 | disposition home or self-care (01) | DRG 72 ==
LOC: ED 11:55 → 2E 14:05 → INTOOBSV 14:05 → 2E 15:57